=== PATIENT | female | born 1955 | race Caucasian/White ===

== ENCOUNTER → 2016-10-09 | Outpatient (CLI) | payer OTHER ==
[~2016-10-09] MED LIST: ACET-1256 PO; AMIT25TA9 PO; AMLO-110 PO; ASPI81TA28 PO; ATEN-175 PO; ATV/1 PO; CALC1CHW PO; CIPR1TAB10 PO; COEN10CA5 PO; COEN1CAP PO; CRAN1CAP6 PO; CYAN10005 PO; CYM/30 PO; DICY10CA12 PO; DIPH-416 PO; FSMD/70 PO; LOSA100T65 PO; MESA0.37 PO; METO100T14 PO; MULT-845 PO; NSP500 PO; NYSS5 PO; OMEG10007 PO; OMEG12006 PO; OMEP40CA PO; OXYC1TAB3 PO; PRED10TA PO; SIMV10TA2 PO; TRAM-10 PO; ZNTT/150 PO
[2016-10-09 13:21] LABS: ALT/SGPT 21 U/L (12-78); BLOOD UREA NITROGEN 11 mg/dl (7-18); BUN/CREATININE RATIO 12.9 (10-20); CARBON DIOXIDE 29 mmol/L (21-32); CHLORIDE 106 mmol/L (98-107); CHOLESTEROL 168 mg/dl (0-200); CREATININE 0.86 mg/dl (0.60-1.20); GLUCOSE 99 mg/dl (70-99); POTASSIUM 3.6 mmol/L (3.5-5.1); SODIUM 143 mmol/L (136-145); TRIGLYCERIDES 144 mg/dl (0-150); VERY LOW DENSITY LIPOPROT CALC 29 mg/dl
[2016-10-09 13:24] LABS: ALB/GLOB RATIO 1.1 (0.9-2); ALKALINE PHOSPHATASE 50 U/L (45-117); AST/SGOT 15 U/L (15-37); CHOLESTEROL/HDL RATIO 1.7; HDL CHOLESTEROL 101 mg/dl; LDL CHOLESTEROL CALCULATED 38 mg/dl
== END | disposition home or self-care (01) ==
LOC: C.LABPBG 09:24
PROVIDERS: ATTEND Neuromusculoskeletal Medicine & OMM
DX: E78.5 Hyperlipidemia, unspecified (principal)

== ENCOUNTER → 2016-10-16 | Outpatient (CLI) | payer OTHER ==
[2016-10-16 12:31] LABS: URINE APPEARANCE CLEAR (CLEAR); URINE BILIRUBIN NEG (NEG); URINE COLOR YELLOW; URINE EPITHELIAL CELL AUTO 0-5 /lpf (0-5); URINE NITRITE POS (NEG); URINE SPECIFIC GRAVITY 1.007 (1.000-1.030); UROBILINOGEN NEG (NEG)
[2016-10-16 12:52] LABS: MANUAL MICROSCOPIC REQUIRED? NO; REVIEW REQ? NO
== END | disposition home or self-care (01) ==
LOC: C.LABPBG 09:27
PROVIDERS: ATTEND Neuromusculoskeletal Medicine & OMM
DX: M54.5 Low back pain (principal); R39.9 Unspecified symptoms and signs involving the genitourinary system

== ENCOUNTER 2017-01-04 04:24 | Emergency (ER) | payer OTHER ==
[~2017-01-04] VITALS: Ht 157.5 cm; Wt 60.9 kg
[~2017-01-04 04:24] MED LIST changes: -ACET-1256 PO; -CIPR1TAB10 PO; -COEN10CA5 PO; -CYAN10005 PO; -FSMD/70 PO; -METO100T14 PO; -NYSS5 PO; -OMEG12006 PO; -ZNTT/150 PO
[2017-01-04 04:27] VITALS: Ht 157.5 cm; Wt 60.9 kg
[2017-01-04] MEDS ORDERED: ACET-1256 PO (05:11)
[2017-01-04] MEDS ORDERED: COEN10CA5 PO (05:13)
[2017-01-04] MEDS ORDERED: OPTIRAY 320 IV PRN (05:15)
[2017-01-04] MEDS ORDERED: METO100T14 PO (05:18)
[2017-01-04 05:19] LABS: HEMATOCRIT 31.1 % (37-47); MEAN CELL VOLUME 104.7 fL (80-100); MEAN CORPUSCULAR HEMOGLOBIN 36.4 pg (25-34); MEAN CORPUSCULAR HGB CONC 34.7 g/dl (32-36); MEAN PLATELET VOLUME 8.9 fL (7.4-10.4); PLATELET COUNT 192 K/uL (130-400); RED BLOOD COUNT 2.97 M/uL (4.2-5.4); WHITE BLOOD COUNT 16.31 K/uL (4.8-10.8)
[2017-01-04] MEDS ORDERED: OMEG12006 PO (05:20)
[2017-01-04] MEDS ORDERED: ZNTT/150 PO (05:23)
[2017-01-04] MEDS ORDERED: CYAN10005 PO (05:24)
[2017-01-04] MEDS ORDERED: FSMD/70 PO (05:27)
--- NOTE | 2017-01-04 05:28 | EMERGENCY ROOM VISIT NOTE ---
History First contact with patient: 04:32 Chief Complaint: ABDOMINAL PAIN Stated Complaint: RT SIDE PAIN INTO RIBS AND CHEST,THRUSH,CONSTIPATE Nursing Triage Summary: Pt reports abdominal pain and unable to move bowels for the past few days. History of Present Illness The patient is a 61 year old female who presents to the Emergency Room with complaints of constipation and abdominal pain. The patient has not had a bowel movement in the last week and on Friday began to develop abdominal pain. The abdominal pain is sharp and over the right side of her abdomen. The pain is constant and worse with movement. It radiates to her right flank and also to the right side of her chest. She is also short of breath because she is having pain when taking deep breaths. She also describe what sound like to be chills on Friday morning. She was given Budesonide by her GI physician 2 weeks ago but was noticing that she was having difficulty with bowel movements and becoming more constipated so decided to stop the medication last week. Since she stopped taking the Budesonide she has not had a bowel movement. The patient has also described blood on her toilet paper when wiping over the last week and she says she has developed Hemorrhoids. She has not seen the hemorrhoids but states that this must be the reason there is blood on the toilet paper. She denies any pain with wiping. She has also complained of oral thrush for the last 3 days. She is currently on chronic prednisone therapy for arthritis. She denies any burning on urination at this time but states that she does have increased pressure with urination. She also has a history of kidney stones but states that this pain is different and definitely not as painful. The patient has a history of C Diff in the past and also was treated for a pansensitive UTI in October. Review of Systems See HPI for pertinent positives and negatives. A total of ten systems were reviewed and were otherwise negative. Past Medical/Surgical History Medical Problems: (1) Anemia Nos (2) Dysthymic Disorder (3) Hydronephrosis (4) Tubal Ligation Status (5) [place] Ulcerative Colitis Surgical Problems: (1) Hx of cholecystectomy Family History Diabetes mellitus Heart disease Hypertension Kidney disease Kidney stones Lung disease Seizures Social History Smoking Status: Current Every Day Smoker Alcohol Use: none Marital Status: Housing Status: lives with family Occupation Status: unemployed Current/Historical Medications Scheduled Acetaminophen (Tylenol), 1,000 MG PO BID Alendronate/Cholecalciferol (Fosamax+D 70MG/2800 Iu), 70 MG PO WK Amitriptyline Hcl (Elavil), 50 MG PO HS Amlodipine (Norvasc), 5 MG PO DAILY Aspirin (Aspirin Ec), 81 MG PO DAILY Calcium Carbonate-Vitamin D (Caltrate 600+D), 1 TAB PO BID Ciprofloxacin Hcl (Cipro), 1 TAB PO BID Coenzyme Q10 (Ubidecarenone) (Co Q 10), 10 MG PO DAILY Cranberry (Vaccinium Macrocarp (Cranberry), 500 MG PO BID Cyanocobalamin (Vitamin B-12), 1,000 MCG PO DAILY Duloxetine HCl (Cymbalta), 30 MG PO DAILY Losartan Potassium (Cozaar), 100 MG PO DAILY Metoprolol Tartrate (Lopressor) (Lopressor), 100 MG PO DAILY Niacin Ext Rel (Niaspan Ext Rel), 1,000 MG PO HS Nystatin (Nystatin), 5 ML PO QID Austin-3 Fatty Acids (Austin 3), 4,000 MG PO DAILY Omeprazole (Prilosec), 40 MG PO DAILY Prednisone Tab (Prednisone), 10 MG PO DAILY Ranitidine (Zantac), 150 MG PO BID Simvastatin (Zocor), 10 MG PO HS Scheduled PRN Dicyclomine Hcl (Dicyclomine Hcl), 20 MG PO TID PRN for Abdominal Pain Diphenoxylate/Atropine (Lomotil), 2 TAB PO Q6H PRN for Diarrhea Lorazepam (Ativan), 1 MG PO BID PRN for Anxiety Tramadol (Ultram), 50 MG PO Q8 PRN for Moderate Pain Allergies Coded Allergies: Erythromycin (Verified Allergy, Unknown, UNKNOWN, 05/12/14) Fruit Juice (Verified Allergy, Unknown, "TROPICANA JUICE" -- HIVES, ) HMG-CoA-R Inhibitors (Verified Allergy, Unknown, MUSCLE PAIN, 05/12/14) Quinolones (Verified Allergy, Unknown, FACIAL SWELLING WITH CIPRO-, ) HAS HAD CIPRO 3-4 YRS AGO WITH NO SIDE EFFECTS Statins (Verified Allergy, Unknown, MUSCLE ACHES, 05/12/14) CANNOT TAKE HIGH DOSES Sulfa Drugs (Verified Allergy, Unknown, FACIAL SWELLING, 05/12/14) Venlafaxine (Verified Allergy, Unknown, RESTLESSNESS, INSOMNIA, 05/12/14) Chlordiazepoxide (Verified Adverse Reaction, Unknown, THRUSH, 12/28/15) Methscopolamine (Verified Adverse Reaction, Unknown, THRUSH, 12/28/15) Yellow Dye (Verified Adverse Reaction, Unknown, THRUSH, 12/28/15) Physical Exam Vital Signs Date Time Temp Pulse Resp B/P Pulse Ox O2 Delivery O2 Flow Rate FiO2 01/04/17 06:58 37.0 85 16 136/69 95 Room Air 01/04/17 06:05 89 18 115/56 96 Room Air 01/04/17 04:27 37.6 103 20 120/80 97 Room Air Physical Exam GENERAL: Awake, alert, in mild distress HENT: Normocephalic, atraumatic. Thrush visible over the tongue EYES: Normal conjunctiva. Sclera non-icteric. NECK: Supple. Trachea midline RESPIRATORY: Clear to auscultation. CARDIAC: Regular rate, normal rhythm. Extremities warm and well perfused. Pulses equal. ABDOMEN: Soft, non-distended. Tenderness over the right side of the abdomen. No masses or pulsations palpated. RECTAL: Deferred. MUSCULOSKELETAL: Chest examination reveals tenderness over the right side of the chest. The back is symmetrical on inspection without obvious abnormality. There is CVA tenderness over the right side. LOWER EXTREMITIES: Calves are equal size bilaterally and non-tender. No edema. No discoloration. NEURO: Normal sensorium. No sensory or motor deficits noted. SKIN: No rash or jaundice noted. Medical Decision & Procedures Laboratory Results 01/04/17 05:10 Red Blood Count 2.97, Mean Corpuscular Volume 104.7, Mean Corpuscular Hemoglobin 36.4, Mean Corpuscular Hemoglobin Concent 34.7, Mean Platelet Volume 8.9, Neutrophils (%) (Auto) 90.0, Lymphocytes (%) (Auto) 5.5, Monocytes (%) ( Auto) 3.9, Eosinophils (%) (Auto) 0.1, Basophils (%) (Auto) 0.1, Neutrophils # ( Auto) 14.70, Lymphocytes # (Auto) 0.89, Monocytes # (Auto) 0.64, Eosinophils # ( Auto) 0.01, Basophils # (Auto) 0.01 01/04/17 05:10 Test 01/04/17 05:10 01/04/17 05:30 White Blood Count 16.31 K/uL (4.8-10.8) Red Blood Count 2.97 M/uL (4.2-5.4) Hemoglobin 10.8 g/dL (12.0-16.0) Hematocrit 31.1 % (37-47) Mean Corpuscular Volume 104.7 fL (80-100) Mean Corpuscular Hemoglobin 36.4 pg (25-34) Mean Corpuscular Hemoglobin Concent 34.7 g/dl (32-36) Platelet Count 192 K/uL (130-400) Mean Platelet Volume 8.9 fL (7.4-10.4) Neutrophils (%) (Auto) 90.0 % Lymphocytes (%) (Auto) 5.5 % Monocytes (%) (Auto) 3.9 % Eosinophils (%) (Auto) 0.1 % Basophils (%) (Auto) 0.1 % Neutrophils # (Auto) 14.70 K/uL (1.4-6.5) Lymphocytes # (Auto) 0.89 K/uL (1.2-3.4) Monocytes # (Auto) 0.64 K/uL (0.11-0.59) Eosinophils # (Auto) 0.01 K/uL (0-0.5) Basophils # (Auto) 0.01 K/uL (0-0.2) RDW Standard Deviation 52.3 fL (36.4-46.3) RDW Coefficient of Variation 13.5 % (11.5-14.5) Immature Granulocyte % (Auto) 0.4 % Immature Granulocyte # (Auto) 0.06 K/uL (0.00-0.02) Red Blood Cell Morphology Unremarkable D-Dimer 4370 ug/L FEU (0-500) Anion Gap 9.0 mmol/L (3-11) Est Creatinine Clear Calc Drug Dose 52.1 ml/min Estimated GFR () 73.9 Estimated GFR (Non- 63.7 BUN/Creatinine Ratio 16.5 (10-20) Calcium Level 8.0 mg/dl (8.5-10.1) Total Bilirubin 0.6 mg/dl (0.2-1) Direct Bilirubin 0.2 mg/dl (0-0.2) Aspartate Amino Transf (AST/SGOT) 14 U/L (15-37) Alanine Aminotransferase (ALT/SGPT) 20 U/L (12-78) Alkaline Phosphatase 105 U/L (45-117) Troponin I < 0.015 ng/ml (0-0.045) Total Protein 6.0 gm/dl (6.4-8.2) Albumin 2.4 gm/dl (3.4-5.0) Urine Color DK YELLOW Urine Appearance CLOUDY (CLEAR) Urine pH 5.0 (4.5-7.5) Urine Specific [place] 1.020 (1.000-1.030) Urine Protein 2+ (NEG) Urine Glucose (UA) NEG (NEG) Urine Ketones NEG (NEG) Urine Occult Blood 3+ (NEG) Urine Nitrite POS (NEG) Urine Bilirubin NEG (NEG) Urine Urobilinogen NEG (NEG) Urine Leukocyte Esterase MODERATE (NEG) Urine WBC (Auto) >30 /hpf (0-5) Urine RBC (Auto) >30 /hpf (0-4) Urine Hyaline Casts (Auto) 1-5 /lpf (0-5) Urine Epithelial Cells (Auto) 5-10 /lpf (0-5) Urine Bacteria (Auto) 4+ (NEG) Medications Administered Medications (Trade) Dose Ordered Sig/[place] Route Start Time Stop Time Status Last Admin Dose Admin Potassium Chloride (Klor-Con M10) 40 meq NOW ONCE PO 01/04/17 07:00 01/04/17 07:01 DC 01/04/17 07:04 40 MEQ Ceftriaxone Sodium (Rocephin Inj) 1 gm NOW STAT IV 01/04/17 06:57 01/04/17 07:00 DC 01/04/17 07:05 1 GM Medical Decision Patient is a 61 year old female with constipation and abdominal pain - Ordered lab work including CBC, UA, Urine Culture, BMP, D-dimer, Liver Profile , Troponin - Imaging: CT Abdomen Pelvis with IV contrast, Chest X-Ray D-Dimer Returned elevated at 4370 - Ordered CT for PE Urinalysis: Urine Occult Blood 3+, Positive Urine Nitrite, Moderate Leukocyte Esterase, 4+ Urine Bacteria - Appearance of UTI - Ordered Urine Culture - Previous history of recurrent E Coli UTI CTA Chest shows no evidence of PE CT Abdomen and Pelvis: Suspect increased density of uroepithelium and correlation to pyelonephritis Based on UA and CT Abdomen and Pelvis high suspicion for Pyelonephritis - Patient treated with 1 gram of Rocephin IV and 500mg PO Ciprofloxacin in the ED Differential diagnosis considered is Diverticulitis, UTI, Pyelonephritis, Kidney Stones, Constipation, Bowel Obstruction, Hemorrhoids, Pulmonary Embolism , Myocardial Infarction - Diverticulitis ruled out after CT scan showed no diverticulitis appreciated - Suspected Pyelonephritis due to physical exam, CT scan results, and urinalysis - No kidney stones were visible on imaging - PE ruled out due to no evidence of PE on CTA - CT scan did not reveal elevated stool density in the colon - Troponin was <0.015 ruling out acute cardiac ischemic event Impression Primary Impression: Pyelonephritis Additional Impression: Oral thrush Departure Information Dispostion Home / Self-Care Condition FAIR Prescriptions Nystatin (Nystatin) 5 Ml Susp 5 ML PO QID for 10 Days, #200 ML Prov: Rick Cabrera MD 01/04/17 Ciprofloxacin Hcl (CIPRO) 500 Mg Tab 1 TAB PO BID for 10 Days, #19 TAB Prov: Rick Cabrera MD 01/04/17 Referrals Terence Malin D.O. (PCP) Patient Instructions [facility] Problem Qualifiers
[2017-01-04 05:38] LABS: ALT/SGPT 20 U/L (12-78); AST/SGOT 14 U/L (15-37); BLOOD UREA NITROGEN 16 mg/dl (7-18); BUN/CREATININE RATIO 16.5 (10-20); CARBON DIOXIDE 24 mmol/L (21-32); CHLORIDE 110 mmol/L (98-107); CREATININE 0.95 mg/dl (0.60-1.20); GLUCOSE 121 mg/dl (70-99); POTASSIUM 3.1 mmol/L (3.5-5.1); SODIUM 143 mmol/L (136-145)
[2017-01-04 05:39] LABS: BASO % 0.1 %; BASO ABS # 0.01 K/uL (0-0.2); COMPLETE YES; EOS % 0.1 %; IG% 0.4 %; LYMPH % 5.5 %; LYMPH ABS # 0.89 K/uL (1.2-3.4); MONO % 3.9 %
[2017-01-04 05:43] LABS: ALKALINE PHOSPHATASE 105 U/L (45-117)
[2017-01-04 05:48] LABS: URINE APPEARANCE CLOUDY (CLEAR); URINE BILIRUBIN NEG (NEG); URINE COLOR DK YELLOW; URINE NITRITE POS (NEG); UROBILINOGEN NEG (NEG)
[2017-01-04 05:50] LABS: MANUAL MICROSCOPIC REQUIRED? NO; REVIEW REQ? NO
[2017-01-04] MEDS ORDERED: POTASSIUM CHLORIDE 20 MEQ TABCR PO ONE (06:30)
[2017-01-04] MEDS ORDERED: CEFTRIAXONE SOD INJ 1 GM ADDVIAL IV STA (06:57)
[2017-01-04 06:58] VITALS: TEMP 37
--- NOTE | 2017-01-04 06:59 | DIAGNOSTIC IMAGING REPORT ---
CT SCAN OF THE ABDOMEN AND PELVIS WITH IV CONTRAST CLINICAL HISTORY: Right-sided abdominal pain. COMPARISON STUDY: Abdominal CT dated 02/04/2014. TECHNIQUE: Following the IV administration of 119 cc of Optiray 320, CT scan of the abdomen and pelvis is performed from the lung bases to the proximal femora. Images are reviewed in the axial, sagittal, and coronal planes. IV contrast was administered without complication. Automated dose control exposure was utilized. FINDINGS: Lung bases: The heart is normal in size and there is trace pericardial effusion. The coronary arteries are densely calcified. The lung bases are clear. Liver: The contrast-enhanced liver is normal in size, contour, and attenuation. There is minimal central intrahepatic biliary ductal dilatation. The hepatic veins and portal veins are patent. Gallbladder: Surgically absent noting clips in the gallbladder fossa. Spleen: Normal in size and attenuation. Pancreas: Moderately atrophic and grossly unremarkable. Adrenal glands: Unremarkable. Kidneys: The contrast enhanced kidneys demonstrate cortical atrophy and are without hydronephrosis. There is markedly heterogeneous perfusion of the right kidney as compared to the left with a striated nephrogram. There is urothelial thickening seen within the right renal pelvis. The left kidney enhances homogeneously. A 1.9 cm cyst in the right lower pole has increased in size from 2014. Additional subcentimeter cortical hypodensities also likely represent cysts but are too small for definitive characterization. Abdominal vasculature: The abdominal aorta is normal in course and caliber noting mild to moderate atherosclerotic calcification. Stomach and bowel: There is a large hiatal hernia, with over half of the stomach located in the thoracic cavity. The duodenum is normal in configuration. There is no bowel obstruction. There is mild to moderate sigmoid diverticulosis without CT evidence of acute diverticulitis. Moderate colonic fecal retention is observed. Imaged portions of the appendix are grossly normal. The appendix is not well assessed. Peritoneum: There is no intraperitoneal free air is seen. There is trace free fluid in the pelvis. Lymphadenopathy: None. Pelvic viscera: The bladder is decompressed and grossly unremarkable. The uterus and adnexa are normal as visualized. Findings suggest pelvic floor prolapse. Skeletal structures: The skeletal structures are osteopenic. There are age indeterminant and likely chronic compression deformities of T11, T12, and L1. There are postoperative changes from laminectomy and posterior fusion from L2 through S1. No lytic or blastic lesions are seen. IMPRESSION: 1. There is markedly heterogeneous enhancement of the right kidney with a striated nephrogram appearance. The appearance is most typical for pyelonephritis. Renal infarct is considered much less likely. Correlation with clinical findings and urinalysis will be required. 2. Moderate constipation. 3. Large hiatal hernia. 4. Sigmoid diverticulosis without CT evidence of acute diverticulitis. 5. Age indeterminant and likely chronic compression deformities in the thoracolumbar spine as above. Clinical correlation will be required. 6. There is trace free fluid in the pelvis, likely on a reactive basis. 7. Additional findings as above. Electronically signed by: Sanford Almaraz M.D. 01/04/2017 6:58 AM Dictated Date/Time: 01/04/2017 6:48 AM
[2017-01-04] MEDS ORDERED: POTASSIUM CHLORIDE 10 MEQ TABCR PO ONE (07:00)
[2017-01-04] MEDS ORDERED: CIPROFLOXACIN 500 MG TAB PO STA (07:05)
--- NOTE | 2017-01-04 07:17 | EMERGENCY ROOM VISIT NOTE ---
ED Visit Note First contact with patient: 04:32 Resident Physician Supervision Note: I interviewed and examined the patient. Discussed with Dr. Cabrera and agree with findings and plan as documented in the note. The patient is hemodynamically stable. CT scan of the belly reveals no evidence of diverticulitis. There is evidence of probably right-sided pyelonephritis. The patient will be treated with IV Rocephin and oral Cipro. she was discharged to return here to the ER if she develops worsening symptoms such as high fevers, vomiting, or worsening pain. Documented By: Agatha Pugh DO
--- NOTE | 2017-01-04 07:17 | DIAGNOSTIC IMAGING REPORT ---
CT ANGIOGRAM OF THE CHEST COMBO CLINICAL HISTORY: Right-sided chest pain. COMPARISON STUDY: Chest x-ray dated 01/04/2017. TECHNIQUE: Before and following the IV administration of 119 cc of Optiray 320, CT angiogram of the chest was performed from the thoracic inlet to the upper abdomen utilizing the dissection protocol. Images are reviewed in the axial, sagittal, and coronal planes. 3-D MIPS images are created and assessed. IV contrast was administered without complication. CT DOSE: 551.00 mGy.cm FINDINGS: Thyroid: Imaged portions of the thyroid gland are normal in size and attenuation. A subcentimeter low-attenuation nodule is noted in the left lobe. Thoracic aorta: The thoracic aorta is normal in caliber and demonstrates standard 3-vessel arch anatomy. No dissection is seen. Pulmonary vasculature: The pulmonary trunk is normal in caliber. There are no central filling defects identified in the pulmonary vessels to suggest pulmonary embolus. Note that this examination was not specifically protocoled to assess for pulmonary emboli. Heart: The heart is normal in size and there is a small pericardial effusion. The coronary arteries are densely calcified. Lungs and pleural spaces: There is a trace right pleural effusion. No airspace consolidation is seen. Subpleural reticulation is identified bilaterally and there is dependent atelectasis. The trachea and central airways are clear. Mediastinum: There is no mediastinal lymphadenopathy. Fabiola: Clear. Axillae: There is no axillary lymphadenopathy. Upper abdomen: There is a large hiatal hernia. Partially visualized upper abdominal viscera is otherwise grossly within normal limits. See report of abdominal CT performed concurrently for detailed intra-abdominal findings. Skeletal structures: The skeletal structures are osteopenic. Age indeterminant compression deformities are noted in T11, T12, and L1. Degenerative change and kyphoscoliosis are noted in the thoracic spine. No lytic or blastic bony lesions are seen. IMPRESSION: 1. There is no evidence of pulmonary embolus in the main, lobar, or segmental pulmonary arteries. 2. Trace right pleural effusion. The lungs are otherwise clear. 3. Large hiatal hernia. Electronically signed by: Sanford Almaraz M.D. 01/04/2017 7:15 AM Dictated Date/Time: 01/04/2017 7:11 AM
[2017-01-04] MEDS ORDERED: CIPR1TAB10 PO (07:21)
[2017-01-04] MEDS ORDERED: NYSS5 PO (07:21)
[2017-01-04 07:49] VITALS: BP 114/66; PULSE 87; O2SAT 96
--- NOTE | 2017-01-04 08:30 | DIAGNOSTIC IMAGING REPORT ---
SINGLE VIEW CHEST CLINICAL HISTORY: Right-sided chest pain. FINDINGS: An AP, portable, upright chest radiograph is compared to study dated 12/28/2015. The examination is degraded by portable technique and patient rotation. The heart is top normal for projection. The mediastinal contour is within normal limits. There is a hiatal hernia. The lungs and pleural spaces are clear. No pneumothorax is seen. The skeletal structures are osteopenic. The bony thorax is grossly intact. Fusion hardware is partially imaged in the upper lumbar region. IMPRESSION: No acute cardiopulmonary abnormality. Electronically signed by: Sanford Almaraz M.D. 01/04/2017 8:29 AM Dictated Date/Time: 01/04/2017 8:28 AM
== END 2017-01-04 07:50 | disposition home or self-care (01) ==
LOC: C.EDB 04:25
DX: N12 Tubulo-interstitial nephritis, not specified as acute or chronic (principal); B37.0 Candidal stomatitis; F41.8 Other specified anxiety disorders; D64.9 Anemia, unspecified; F17.200 Nicotine dependence, unspecified, uncomplicated; Z87.11 Personal history of peptic ulcer disease; Z90.49 Acquired absence of other specified parts of digestive tract; Z79.82 Long term (current) use of aspirin; Z79.899 Other long term (current) drug therapy; Z88.2 Allergy status to sulfonamides; Z88.3 Allergy status to other anti-infective agents; Z88.8 Allergy status to other drugs, medicaments and biological substances; Z91.018 Allergy to other foods; Z83.3 Family history of diabetes mellitus; Z82.49 Family history of ischemic heart disease and other diseases of the circulatory system; Z84.1 Family history of disorders of kidney and ureter; Z82.0 Family history of epilepsy and other diseases of the nervous system

== ENCOUNTER → 2017-06-18 | Outpatient (CLI) | payer OTHER ==
[~2017-06-18] MED LIST changes: +ACET-1256 PO; -ATEN-175 PO; +COEN10CA5 PO; -COEN1CAP PO; +CYAN10005 PO; +FSMD/70 PO; -MESA0.37 PO; +METO100T14 PO; -MULT-845 PO; +NYSS5 PO; -OMEG10007 PO; +OMEG12006 PO; -OXYC1TAB3 PO; +ZNTT/150 PO
[2017-06-18 17:53] LABS: BLOOD UREA NITROGEN 15 mg/dl (7-18); CREATININE 0.74 mg/dl (0.60-1.20)
== END | disposition home or self-care (01) ==
LOC: C.LABPBG 12:58
PROVIDERS: ATTEND Physician Assistant
DX: Z01.812 Encounter for preprocedural laboratory examination (principal)

== ENCOUNTER → 2017-10-07 | Outpatient (CLI) | payer OTHER ==
[~2017-10-07] MED LIST changes: +RANI150T85 PO; -ZNTT/150 PO
== END | disposition home or self-care (01) ==
LOC: C.LABPBG 15:34
PROVIDERS: ATTEND Family Medicine
DX: R63.5 Abnormal weight gain (principal); Z11.59 Encounter for screening for other viral diseases